=== PATIENT | male | born 1945 | race Caucasian/White ===

== ENCOUNTER → 2020-09-07 | Outpatient (CLI) | payer MEDICARE ==
--- NOTE | 2020-09-07 14:09 | RAD ---
MRI BRAIN WO History:Reason: INTRACTABLE MIGRAINE WITHOUT AURA AND WITHOUT STATUS MIGRAINOUS / Spl. Instructions: MRV W/O / History: Technique: 3-D [id number] MR venogram was performed of the brain. 3-D reconstructions were perfor med. Comparison: None Findings: Patent superior sagittal, straight, transverse and sigmoid venous sinuses. No stenosis or occlusion. Impression: 1. No evidence of sinus venous thrombosis or stenosis. Electronically signed by: Maxwell Ambriz DO (09/07/2020 2:06 PM) [id number]
== END ==
LOC: MRI 09:47
PROVIDERS: ATTEND Psychiatry & Neurology Neurology with Special Qualifications in Child Neurology
DX: G43.019 Migraine without aura, intractable, without status migrainosus (principal)
CPT/HCPCS: 70544

== ENCOUNTER → 2020-11-20 | Outpatient (CLI) | payer MEDICARE ==
--- NOTE | 2020-11-20 16:58 | RAD ---
US DPLX ARTR EXTREM LOWER BILAT Indication: Reason: Bilateral Knee Pain / Spl. Instructions: / History: Comparison: None. Procedure: Real-time grayscale, color flow Doppler, and Doppler spectral waveform analysis of the art erial system of the lower extremity is performed. Findings: Right lower extremity: Mild atheromatous plaque. No significant velocity elevation. Biphasic or triph asic waveforms throughout the right lower extremity. Left lower extremity: Mild atheromatous plaque. No significant velocity elevation. Biphasic or tripha sic waveforms throughout the left lower extremity. IMPRESSION: 1. No hemodynamically significant arterial stenosis. 2. Mild bilateral atheromatous plaque. Electronically signed by: Maxwell Ambriz DO (11/20/2020 4:55 PM) [facility]
== END ==
LOC: US 14:58
PROVIDERS: ATTEND Orthopaedic Surgery
DX: M17.0 Bilateral primary osteoarthritis of knee (principal); I70.203 Unspecified atherosclerosis of native arteries of extremities, bilateral legs
CPT/HCPCS: 93925

== ENCOUNTER → 2021-06-28 | Outpatient (CLI) | payer MEDICARE ==
[2021-06-28 10:50] LABS: ALBUMIN 3.6 g/dL (3.4-5.0); CALCIUM 8.4 mg/dL (8.5-10.1); POTASSIUM 4.6 mmol/L (3.5-5.1)
[2021-06-28 10:53] LABS: BASO # 0.1 x10^3/uL (0.0-0.2); BASO % 1 % (0-3); EOS # 0.2 x10^3/uL (0.0-0.7); EOS % 4 % (0-3); HEMATOCRIT 43.4 % (39.0-53.0); HEMOGLOBIN 14.6 g/dL (13.0-17.5); LYMPH # 1.8 x10^3/uL (1.0-4.8); LYMPH % 35 % (24-48); MEAN CORPUSCULAR HEMOGLOBIN 33 pg (25-35); MEAN CORPUSCULAR HGB CONC 34 g/dL (31-37); MEAN CORPUSCULAR VOLUME 99 fL (79-100); MONO # 0.5 x10^3/uL (0.0-1.1); MONO % 9 % (0-9); NEUT # 2.5 x10^3/uL (1.8-7.7); NEUT % 51 % (31-73); PLATELET COUNT 175 x10^3/uL (140-400); RED CELL DISTRIBUTION WIDTH 14.6 % (11.5-14.5)
[2021-06-28 11:05] LABS: PROTHROMBIN TIME PATIENT 26.2 SEC (11.7-14.0)
--- NOTE | 2021-06-28 12:45 | EKG ---
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
--- NOTE | 2021-06-28 13:02 | RAD ---
EXAM: Chest, 2 views. HISTORY: Hypertension. COMPARISON: None. FINDINGS: 2 views of the chest are obtained. There is bilateral basilar atelectasis or scarring. Ther e is no infiltrate, pleural effusion or pneumothorax. The heart is normal in size. There is partial v isualization of an IVC filter within the abdomen. IMPRESSION: No acute pulmonary finding. Electronically signed by: Katrin Sewell MD (06/28/2021 1:00 PM) [id number]
== END ==
LOC: SURGPAT 12:06
PROVIDERS: ATTEND Orthopaedic Surgery
DX: Z01.818 Encounter for other preprocedural examination (principal); R00.1 Bradycardia, unspecified; I45.4 Nonspecific intraventricular block; I44.0 Atrioventricular block, first degree; R94.31 Abnormal electrocardiogram [ECG] [EKG]; M17.0 Bilateral primary osteoarthritis of knee
CPT/HCPCS: 36415; 71046; 80048; 82040; 82306; 83036; 85025; 85610; 85651; 85730; 87641; 93005